=== PATIENT | male | born 1970 | race Caucasian/White ===

== ENCOUNTER 2017-01-11 13:59 | Emergency (ER) | payer BC, OTHER ==
--- NOTE | 2017-01-11 15:08 | RAD ---
RIGHT SHOULDER 3 VIEWS: Date: 01/11/17 HISTORY: Injury, right shoulder pain. 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 No fracture, dislocation, or bony vitaliy truction is identified. POS: [facility]
[2017-01-11] MEDS ORDERED: Ibuprofen 800 MG TAB ONE ×2 (15:24→15:27)
[2017-01-11] MEDS ORDERED: Dexamethasone 4 MG TAB ONE ×2 (15:24→15:27)
[2017-01-11] MEDS ORDERED: Acetaminophen 500 MG TAB ONE ×2 (15:24→15:27)
== END 2017-01-11 15:33 | disposition home or self-care (01) ==
LOC: MADERS 13:59
DX: S46.911A Strain of unspecified muscle, fascia and tendon at shoulder and upper arm level, right arm, initial encounter (principal); X50.0XXA Overexertion from strenuous movement or load, initial encounter; Y92.69 Other specified industrial and construction area as the place of occurrence of the external cause; Y99.0 Civilian activity done for income or pay
CPT/HCPCS: J8540